=== PATIENT | male | born 1945 | race Asian ===

== ENCOUNTER 2023-01-06 06:43 | Day surgery (SDC) | payer MEDICARE ==
[~2023-01-06] VITALS: Ht 165.1 cm; Wt 72.7 kg
[2023-01-06] MEDS ORDERED: LIDOCAINE 2% 11 ML JELLY TP ONE (06:44)
[2023-01-06] MEDS ORDERED: ALBUTEROL SULFATE 2.5 MG/0.5 ML NEB SOLUTION NEB ONE (06:44)
[2023-01-06] MEDS ORDERED: BENZOCAINE 20% 50 MCG/SPRAY 57 GM TP ONE (06:44)
[2023-01-06] MEDS ORDERED: SODIUM CHLORIDE 0.9% 1,000 ML IV ONE (07:00)
[2023-01-06] MEDS ORDERED: SODIUM CHLORIDE 0.9% 0 ML ONE (07:33)
[2023-01-06] MEDS ORDERED: SODIUM CHLORIDE 0.9% 1,000 ML ONE (08:11)
[2023-01-06] MEDS ORDERED: TAMS0.4C94 PO (08:32)
[2023-01-06] MEDS ORDERED: CARV3 PO (08:32)
[2023-01-06] MEDS ORDERED: ASPI-1450 PO (08:32)
[2023-01-06] MEDS ORDERED: FURO20 PO (08:32)
[2023-01-06] MEDS ORDERED: DUTA0.5C38 PO (08:32)
[2023-01-06] MEDS ORDERED: METF-1211 PO (08:32)
[2023-01-06] MEDS ORDERED: ATOR40TA28 PO (08:32)
[2023-01-06] MEDS ORDERED: AMLO-257 PO (08:32)
[2023-01-06] MEDS ORDERED: LOSA-382 PO (08:32)
[2023-01-06] MEDS ORDERED: MIDAZOLAM HCL 2 MG/2 ML VIAL ONE (08:36)
[2023-01-06] MEDS ORDERED: FentaNYL CITRATE PF 100 MCG/2 ML VIAL ONE (08:37)
[2023-01-06] MEDS ORDERED: MethylPREDNISolone SOD SUCC 125 MG/2 ML VIAL ONE (08:59)
[2023-01-06 09:00] VITALS: PULSE 75; RESP 20; O2SAT 100
[2023-01-06] MEDS ORDERED: MethylPREDNISolone SOD SUCC 125 MG/2 ML VIAL IVP ONE (09:15)
[2023-01-09 07:16] LABS: GLUCOMETER DEV NAME(LOC) SDS.; GLUCOSE,POINT OF CARE 110 MG/DL (70-110)
== END 2023-01-06 11:00 | disposition home or self-care (01) ==
LOC: SURGERY 06:43
PROVIDERS: ATTEND Internal Medicine Critical Care Medicine
DX: J38.4 Edema of larynx (principal); B37.0 Candidal stomatitis; I10 Essential (primary) hypertension; Z79.82 Long term (current) use of aspirin; Z98.890 Other specified postprocedural states; Z79.01 Long term (current) use of anticoagulants; Z79.899 Other long term (current) drug therapy
CPT/HCPCS: 31623; 88112; 82962; 87206; 87101; 87220; 87070; 31624; 94640; 71045; 87015; J3010; J2250; J2930; Q9967; J7030; J7613